=== PATIENT | female | born 1955 | race African-American/Black ===

== ENCOUNTER 2017-08-30 21:53 | Emergency (ER) | payer MEDICAID ==
[~2017-08-30] VITALS: Ht 172.7 cm; Wt 80.0 kg
[2017-08-31] MEDS ORDERED: KETOROLAC 60MG/2ML VIAL IM ONE
[2017-08-31 00:55] VITALS: BP 120/76
== END 2017-08-31 00:55 | disposition home or self-care (01) ==
LOC: ER 08-31 00:04
DX: S86.912A Strain of unspecified muscle(s) and tendon(s) at lower leg level, left leg, initial encounter (principal); E11.9 Type 2 diabetes mellitus without complications; F17.200 Nicotine dependence, unspecified, uncomplicated; I10 Essential (primary) hypertension; Z86.718 Personal history of other venous thrombosis and embolism; X58.XXXA Exposure to other specified factors, initial encounter; Y93.89 Activity, other specified; Y92.89 Other specified places as the place of occurrence of the external cause; Y99.8 Other external cause status
CPT/HCPCS: 93971; 96372; 99284; J1885

== ENCOUNTER 2018-12-30 20:42 | Emergency (ER) | payer MEDICAID ==
[~2018-12-30] VITALS: Ht 170.2 cm; Wt 59.0 kg
[2018-12-30 23:16] LABS: BASOPHILS % 0.7 % (0.0-2.0); EOSINOPHILS % 2.4 % (0.0-5.0); HEMATOCRIT. 36.1 % (36.0-48.0); HEMOGLOBIN. 11.8 g/dL (12.0-16.0); LYMPHOCYTES % 31.8 % (20.0-50.0); MEAN CORPUSCULAR HEMOGLOBIN 23.8 pg (28.0-32.0); MEAN CORPUSCULAR VOLUME 72.8 fL (81.0-99.0); MEAN PLATELET VOLUME 7.5 fl (7.4-10.4); MONOCYTES % 8.6 % (2.0-8.0); NEUTROPHILS % 56.5 % (40.0-76.0); PLATELET 306 x1000/uL (130-400); RED BLOOD CELL COUNT 4.95 mill/uL (4.2-5.4); RED CELL DISTRIBUTION WIDTH 14.2 % (11.6-14.6)
[2018-12-30 23:19] LABS: CHLORIDE 111 mEq/L (98-107)
[2018-12-31 03:03] VITALS: BP 140/89
== END 2018-12-31 03:06 | disposition home or self-care (01) ==
LOC: ER 20:42
DX: J45.909 Unspecified asthma, uncomplicated (principal); R05 Cough; R42 Dizziness and giddiness; R06.02 Shortness of breath; E11.9 Type 2 diabetes mellitus without complications; I10 Essential (primary) hypertension; F32.9 Major depressive disorder, single episode, unspecified; Z87.891 Personal history of nicotine dependence
CPT/HCPCS: 36415; 71045; 83605; 83880; 84484; 93005; 99284

== ENCOUNTER → 2020-11-24 | Outpatient (CLI) | payer MEDICAID ==
[~2020-11-24] MED LIST: BUPR200T31 MT; FERR325T6 MT; FERR325T6 PO; LISI20TA31 MT; METF-414 PO; NITR0.4T49 SL; QUET400T MT
== END | disposition home or self-care (01) ==
LOC: LAB 11:15
PROVIDERS: ATTEND Internal Medicine Cardiovascular Disease
DX: Z01.812 Encounter for preprocedural laboratory examination (principal); Z20.822 Contact with and (suspected) exposure to COVID-19
CPT/HCPCS: 87426

== ENCOUNTER 2020-11-26 07:02 | Day surgery (SDC) | payer MEDICARE, MEDICAID ==
[~2020-11-26] VITALS: Ht 162.6 cm; Wt 63.5 kg
[2020-11-26 07:50] LABS: BASOPHILS % 0.8 % (0.0-2.0); EOSINOPHILS % 6.2 % (0.0-5.0); HEMATOCRIT. 34.4 % (36.0-48.0); HEMOGLOBIN. 11.1 g/dL (12.0-16.0); LYMPHOCYTES % 53.3 % (20.0-50.0); MEAN CORPUSCULAR HEMOGLOBIN 23.7 pg (28.0-32.0); MEAN CORPUSCULAR VOLUME 73.6 fL (81.0-99.0); MEAN PLATELET VOLUME 7.5 fl (7.4-10.4); MONOCYTES % 8.4 % (2.0-8.0); NEUTROPHILS % 31.3 % (40.0-76.0); PLATELET 268 x1000/uL (130-400); RED BLOOD CELL COUNT 4.68 mill/uL (4.2-5.4); RED CELL DISTRIBUTION WIDTH 14.4 % (11.6-14.6)
[2020-11-26 08:00] LABS: PARTIAL THROMBOPLASTIN TIME 26.2 sec (23.4-31.0); PROTHROMBIN TIME 10.8 sec (9.6-11.0)
[2020-11-26] MEDS ORDERED: BUPR200T31 MT (08:01)
[2020-11-26] MEDS ORDERED: FERR325T6 PO (08:01)
[2020-11-26] MEDS ORDERED: QUET400T MT (08:01)
[2020-11-26] MEDS ORDERED: NITR0.4T49 SL (08:01)
[2020-11-26] MEDS ORDERED: METF-414 PO (08:01)
[2020-11-26] MEDS ORDERED: FERR325T6 MT (08:01)
[2020-11-26] MEDS ORDERED: LISI20TA31 MT (08:01)
[2020-11-26 08:10] LABS: CHLORIDE 108 mEq/L (98-107)
[2020-11-26] MEDS ORDERED: NICARDIPINE 100MCG/ML 10ML VIAL (CATH LAB) IV ONE (09:13)
[2020-11-26] MEDS ORDERED: NITROGLYCERIN 50MCG/ML 10ML VIAL (CATH LAB) IV ONE (09:13)
[2020-11-26] MEDS ORDERED: HEPARIN SODIUM 1,000 UNIT/1ML VIAL IV ONE (09:13)
[2020-11-26] MEDS ORDERED: IODIXANOL 320MG/ML 100 ML BOTTLE IV ONE (09:14)
[2020-11-26] MEDS ORDERED: LIDOCAINE HCL 1% 20ML VIAL (Pyxis) INJ ONE (09:14)
[2020-11-26] MEDS ORDERED: FENTANYL CITRATE/PF 50MCG/ML 2ML VIAL ONE (09:15)
[2020-11-26] MEDS ORDERED: MIDAZOLAM HCL 2 MG/2 ML VIAL ONE (09:15)
[2020-11-26] MEDS ORDERED: ACETAMINOPHEN 325MG TABLET PO PRN (10:00)
[2020-11-26] MEDS ORDERED: MORPHINE SULFATE 2 MG/ML CPJ (NOT FOR IM USE) IV PRN (10:00)
[2020-11-26] MEDS ORDERED: ONDANSETRON HCL 4MG/2ML INJ IV PRN (10:00)
[2020-11-26] MEDS ORDERED: POTASSIUM CHLORIDE 20MEQ/PACKET PO NR (10:15)
== END 2020-11-26 14:15 | disposition home or self-care (01) ==
LOC: CCL 07:02
PROVIDERS: ATTEND Internal Medicine Cardiovascular Disease
DX: R07.9 Chest pain, unspecified (principal); I25.10 Atherosclerotic heart disease of native coronary artery without angina pectoris; I10 Essential (primary) hypertension; E78.5 Hyperlipidemia, unspecified; E11.9 Type 2 diabetes mellitus without complications; F17.210 Nicotine dependence, cigarettes, uncomplicated; Z79.84 Long term (current) use of oral hypoglycemic drugs; Z79.899 Other long term (current) drug therapy; Z98.890 Other specified postprocedural states
CPT/HCPCS: 36415; 80048; 85025; 85610; 85730; 93005; 93458; C1769; C1887; C1893; J1644; J2250; J3010; J3490; Q9967

== ENCOUNTER → 2023-01-17 | Outpatient (CLI) | payer MEDICARE, MEDICAID ==
[~2023-01-17] MED LIST changes: +BARIUM SULFATE 450ML ORAL SUSP ONE; +BARIUM SULFATE(VOLUMEN) 450 ML ORAL.SUSP ONE; +DIATR MEGLU/DIATRIZOATE SOLN 120ML ONE; +IOHEXOL-300 100 ML BOTTLE ONE
== END | disposition home or self-care (01) ==
LOC: CT 11:57
PROVIDERS: ATTEND Internal Medicine Gastroenterology
DX: R10.9 Unspecified abdominal pain (principal); N28.1 Cyst of kidney, acquired; M47.816 Spondylosis without myelopathy or radiculopathy, lumbar region
CPT/HCPCS: 74177; C1893; Q9963; Q9967

== ENCOUNTER 2023-04-04 09:46 | Emergency (ER) | payer MEDICARE, MEDICAID ==
[~2023-04-04] VITALS: Ht 171.4 cm; Wt 65.5 kg
[~2023-04-04 09:46] MED LIST changes: -BARIUM SULFATE 450ML ORAL SUSP ONE; -BARIUM SULFATE(VOLUMEN) 450 ML ORAL.SUSP ONE; -DIATR MEGLU/DIATRIZOATE SOLN 120ML ONE; -IOHEXOL-300 100 ML BOTTLE ONE
[2023-04-04 09:54] VITALS: O2SAT 99
[2023-04-04] MEDS ORDERED: IBUPROFEN 600MG TABLET PO STA (12:29)
[2023-04-04 13:20] LABS: BASOPHILS % 0.8 % (0.0-2.0); DIFFERENTIAL COMMENT 0; EOSINOPHILS % 5.6 % (0.0-5.0); HEMATOCRIT. 36.9 % (36.0-48.0); HEMOGLOBIN. 11.6 g/dL (12.0-16.0); LYMPHOCYTES % 55.3 % (20.0-50.0); MEAN CORPUSCULAR HGB CONC 31.6 g/dL (31.0-37.0); MEAN CORPUSCULAR VOLUME 72.9 fL (81.0-99.0); MEAN PLATELET VOLUME 7.3 fl (7.4-10.4); NEUTROPHILS % 31.3 % (40.0-76.0); PLATELET 289 x1000/uL (130-400); RED BLOOD CELL COUNT 5.05 mill/uL (4.2-5.4); RED CELL DISTRIBUTION WIDTH 14.9 % (11.6-14.6); WHITE BLOOD COUNT 5.1 x1000/uL (4.5-11.0)
[2023-04-04 13:39] LABS: CHLORIDE 108 mEq/L (98-107); INDEX HEMOLYSI 1 (1-3); INDEX ICTERIC 1 (1-4); INDEX LIPEMIC 1 (1-3); POTASSIUM 4.1 mEq/L (3.5-5.1); SODIUM 141 mEq/L (136-145)
[2023-04-04 13:50] LABS: ALANINE AMINOTRANSFERASE 27 IU/L (13-61); ALBUMIN 3.9 g/dL (3.4-5.0); ASPARTATE AMINOTRANSFERASE 23 IU/L (15-37); BILIRUBIN TOTAL 0.6 mg/dL (0.1-1.0); CALCIUM 9.6 mg/dL (8.5-10.1); CARBON DIOXIDE 27 mEq/L (21-32); GLUCOSE 86 mg/dL (70-105); PROTEIN TOTAL 7.7 g/dL (6.0-8.3); UREA NITROGEN BLOOD 11 mg/dL (7-21)
[2023-04-04] MEDS ORDERED: CEPH500C2 MT ×2 (14:02→14:42)
[2023-04-04] MEDS ORDERED: IBUP-2029 MT ×2 (14:02→14:42)
[2023-04-04 15:01] VITALS: BP 142/78; PULSE 87; RESP 16; TEMP 97.9
== END 2023-04-04 15:02 | disposition home or self-care (01) ==
LOC: ER 09:46
DX: M79.644 Pain in right finger(s) (principal)
CPT/HCPCS: 36415; 73130; 80053; 85025; 99284